=== PATIENT | male | born 1960 | race Two or more races ===

== ENCOUNTER 2018-07-02 10:31 | Emergency (ER) | payer MEDICAID ==
[~2018-07-02] VITALS: Ht 175.3 cm; Wt 107.0 kg
[2018-07-02 11:13] VITALS: Ht 175.3 cm; Wt 107.0 kg
[2018-07-02 13:52] VITALS: BP 143/104
== END 2018-07-02 13:53 | disposition home or self-care (01) ==
LOC: ED 10:31
DX: S13.4XXA Sprain of ligaments of cervical spine, initial encounter (principal); Z91.013 Allergy to seafood; E11.9 Type 2 diabetes mellitus without complications; V49.88XA Car occupant (driver) (passenger) injured in other specified transport accidents, initial encounter; Y93.89 Activity, other specified; Y92.89 Other specified places as the place of occurrence of the external cause; Y99.8 Other external cause status